=== PATIENT | male | born 1960 | race Asian ===

== ENCOUNTER 2022-10-21 01:23 | Emergency (ER) | payer OTHER, BC ==
[2022-10-21 01:33] VITALS: BP 139/89; PULSE 84; RESP 18; TEMP 97.7; BMI 23.6
[2022-10-21 02:01] LABS: BASO % 0.5 % (0-2.0); EOS % 2.8 % (0-4.5); HEMATOCRIT 47.2 % (35.4-49); HEMOGLOBIN 15.5 GM/dL (11.7-16.9); LYMPH % 18.3 % (8-40); MCH 28.6 pg (25.7-33.7); MCHC 32.9 g/dl (32.0-35.9); MEAN CELL VOLUME 87.1 fl (80-96); MEAN PLT VOLUME 8.4 fl (7.5-11.1); MONO % 8.5 % (3.8-10.2); NEUT % 69.9 % (42.8-82.8); PLATELET COUNT 258 10^3/uL (134-434); RBC 5.42 M/mm3 (4.00-5.60); WHITE BLOOD COUNT 10.7 K/mm3 (4.0-10.0)
[2022-10-21 02:25] LABS: ALBUMIN 4.7 g/dl (3.4-5.0); BLOOD UREA NITROGEN 20.3 mg/dL (7-18); CALCIUM 9.4 mg/dL (8.5-10.1)
[2022-10-21 02:28] LABS: CREATININE 1.1 mg/dL (0.55-1.3)
[2022-10-21 02:30] LABS: BILIRUBIN,TOTAL 0.7 mg/dL (0.2-1); TOT PROT 7.7 g/dl (6.4-8.2)
[2022-10-21 13:39] LABS: HIV INTERPRETATION NEGATIVE (NEGATIVE)
== END 2022-10-21 01:53 | disposition home or self-care (01) ==
LOC: JER 01:23
DX: S61.233A Puncture wound without foreign body of left middle finger without damage to nail, initial encounter (principal); W46.0XXA Contact with hypodermic needle, initial encounter
CPT/HCPCS: 36415; 80053; 85025; 86705; 86803; 87340; 87389; 87517; 87522; 99283-25